=== PATIENT | female | born 2000 | race Caucasian/White ===

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

== ENCOUNTER → 2018-01-30 | Outpatient (CLI) | payer BC ==
[2018-01-30 16:47] LABS: BASO % 0.5 % (0.0-1.0); EOS # 0.2 10^3/uL (0.0-0.50); EOS % 3.2 % (0.0-3.0); HEMATOCRIT 41.4 % (36.0-47.0); HEMOGLOBIN 13.5 g/dl (12.0-16.0); IMMATURE GRANULOCYTE % 0.2 % (0-3.0); LYMPH # 2.2 10^3/uL (1.5-6.5); LYMPH % 34.8 % (24.0-44.0); MEAN CORPUSCULAR HEMOGLOBIN 26.8 pg (27.0-33.0); MEAN CORPUSCULAR HGB CONC 32.6 g/dl (32.0-36.5); MEAN CORPUSCULAR VOLUME 82.1 fl (80.0-96.0); MONO # 0.5 10^3/uL (0.0-0.8); MONO % 8.5 % (0.0-5.0); NEUTROPHILS # 3.4 10^3/uL (1.8-7.7); NEUTROPHILS % 52.8 % (36.0-66.0); PLATELET COUNT, AUTOMATED 260 10^3/uL (150-450); RED BLOOD COUNT 5.04 10^6/uL (4.00-5.40); RED CELL DISTRIBUTION WIDTH 13.3 % (11.5-14.5); WHITE BLOOD COUNT 6.3 10^3/uL (4.0-10.0)
[2018-01-30 18:53] LABS: ESTIMATED AVERAGE GLUCOSE 105 MG/DL (60-110); HEMOGLOBIN A1c 5.3 %
[2018-01-30 18:59] LABS: THYROID PEROXIDASE ANTIBODY > 1300.0 U/ML (<60.0)
[2018-01-30 19:33] LABS: ALBUMIN/GLOBULIN RATIO 1.08 (1.00-1.93); ALKALINE PHOSPHATASE 62 U/L (45-117); ALT/SGPT 17 U/L (12-78); ANION GAP 8 MEQ/L (8-16); AST/SGOT 15 U/L (7-37); BILIRUBIN,TOTAL 0.4 MG/DL (0.2-1.0); BLOOD UREA NITROGEN 10 MG/DL (7-18); C REACTIVE PROTEIN QUANTITATIV 0.65 MG/DL (0.00-0.30); CARBON DIOXIDE LEVEL 24 MEQ/L (21-32); CHLORIDE LEVEL 108 MEQ/L (98-107); CHOLESTEROL LEVEL 231 MG/DL (<200); CHOLESTEROL RISK RATIO 4.529 (<5); FERRITIN 26 NG/ML (8-252); FREE T4 1.21 NG/DL (0.78-1.33); GLUCOSE, FASTING 76 MG/DL (70-100); HDL CHOLESTEROL 51 MG/DL (>40); IRON (FE) 86 UG/DL (50-170); LDL CHOLESTEROL 163.2 MG/DL (<100); NON-HDL-C 180 MG/DL; PERCENT SATURATION 23.4 % (13.2-45.0); POTASSIUM SERUM 4.1 MEQ/L (3.5-5.1); SODIUM LEVEL 140 MEQ/L (136-145); TOTAL IRON BINDING CAPACITY 367 UG/DL (250-450); TOTAL PROTEIN 7.7 GM/DL (6.4-8.2); TRIGLYCERIDES LEVEL 84 MG/DL (<150)
[2018-02-01 14:11] LABS: INSULIN LEVEL 12.8 uIU/mL (2.6-24.9)
== END ==
LOC: M WUC 10:20
DX: D50.9 Iron deficiency anemia, unspecified (principal); E66.3 Overweight; M25.569 Pain in unspecified knee

== ENCOUNTER → 2018-10-23 | Outpatient (CLI) | payer BC ==
[2018-10-23 12:47] LABS: BASO % 0.5 % (0.0-1.0); EOS # 0.2 10^3/uL (0.0-0.50); EOS % 2.6 % (0.0-3.0); HEMATOCRIT 40.7 % (36.0-47.0); HEMOGLOBIN 13.6 g/dl (12.0-15.5); IMMATURE GRANULOCYTE % 0.2 % (0-3.0); LYMPH # 2.2 10^3/uL (1.5-6.5); LYMPH % 26.6 % (24.0-44.0); MEAN CORPUSCULAR HEMOGLOBIN 26.9 pg (27.0-33.0); MEAN CORPUSCULAR HGB CONC 33.4 g/dl (32.0-36.5); MEAN CORPUSCULAR VOLUME 80.4 fl (80.0-96.0); MONO # 0.9 10^3/uL (0.0-0.8); MONO % 10.8 % (0.0-5.0); NEUTROPHILS # 4.8 10^3/uL (1.8-7.7); NEUTROPHILS % 59.3 % (36.0-66.0); PLATELET COUNT, AUTOMATED 260 10^3/uL (150-450); RED BLOOD COUNT 5.06 10^6/uL (4.00-5.40); RED CELL DISTRIBUTION WIDTH 13.3 % (11.5-14.5); RETIC HEMOGLOBIN EQUIVALENT 32.4 pg (24-36); RETICULOCYTE # 59.7 10^9/L (17-77); RETICULOCYTE % 1.2 % (0.5-1.5); WHITE BLOOD COUNT 8.1 10^3/uL (4.0-10.0)
[2018-10-23 13:01] LABS: C REACTIVE PROTEIN QUANTITATIV 0.32 MG/DL (0.00-0.30); CHOLESTEROL LEVEL 169 MG/DL (<200); CHOLESTEROL RISK RATIO 4.023 (<5); CPK CREATINE PHOSPHOKINASE 170 U/L (26-192); FREE T4 0.89 NG/DL (0.78-1.33); HDL CHOLESTEROL 42 MG/DL (>40); LDL CHOLESTEROL 107 MG/DL (<100); NON-HDL-C 127 MG/DL; TRIGLYCERIDES LEVEL 101 MG/DL (<150); VITAMIN B12 LEVEL 663 PG/ML (247-911)
== END ==
LOC: M WUC 09:40
DX: D50.9 Iron deficiency anemia, unspecified (principal); E78.2 Mixed hyperlipidemia; E06.3 Autoimmune thyroiditis
CPT/HCPCS: 82550

== ENCOUNTER → 2019-04-08 | Outpatient (CLI) | payer BC ==
[~2019-04-08] MED LIST: CEPH500C; PERC5TAB12 PO
[2019-04-08 16:53] LABS: BASO % 0.6 % (0.0-1.0); EOS # 0.2 10^3/uL (0.0-0.50); EOS % 2.6 % (0.0-3.0); HEMATOCRIT 42.3 % (36.0-47.0); HEMOGLOBIN 13.6 g/dl (12.0-15.5); LYMPH # 1.9 10^3/uL (1.5-6.5); LYMPH % 29.8 % (24.0-44.0); MEAN CORPUSCULAR HEMOGLOBIN 26.8 pg (27.0-33.0); MEAN CORPUSCULAR HGB CONC 32.2 g/dl (32.0-36.5); MEAN CORPUSCULAR VOLUME 83.4 fl (80.0-96.0); MONO # 0.5 10^3/uL (0.0-0.8); NEUTROPHILS # 3.8 10^3/uL (1.8-7.7); NEUTROPHILS % 58.8 % (36.0-66.0); PLATELET COUNT, AUTOMATED 319 10^3/uL (150-450); RED BLOOD COUNT 5.07 10^6/uL (4.00-5.40); WHITE BLOOD COUNT 6.5 10^3/uL (4.0-10.0)
[2019-04-08 17:07] LABS: ALBUMIN 3.9 GM/DL (3.2-5.2); ALT/SGPT 14 U/L (12-78); BILIRUBIN,TOTAL 0.7 MG/DL (0.2-1.0); BLOOD UREA NITROGEN 11 MG/DL (7-18); CALCIUM LEVEL 9.2 MG/DL (8.5-10.1); CARBON DIOXIDE LEVEL 27 MEQ/L (21-32); CHLORIDE LEVEL 107 MEQ/L (98-107); CREATININE FOR GFR 0.74 MG/DL (0.55-1.30); GLUCOSE, FASTING 86 MG/DL (70-100); POTASSIUM SERUM 4.1 MEQ/L (3.5-5.1); SODIUM LEVEL 140 MEQ/L (136-145); TOTAL PROTEIN 7.9 GM/DL (6.4-8.2)
[2019-04-08 17:18] LABS: APPEARANCE, URINE HAZY (CLEAR); BACTERIA, URINE AUTO NEGATIVE (NEGATIVE); BILIRUBIN, URINE AUTO NEGATIVE (NEGATIVE); BLOOD, URINE BLOOD NEGATIVE (NEGATIVE); COLOR, URINE YELLOW (YELLOW); GLUCOSE, URINE (UA) AUTO NEGATIVE (NEGATIVE); KETONE, URINE AUTO NEGATIVE (NEGATIVE); LEUKOCYTE ESTERASE, URINE AUTO NEGATIVE (NEGATIVE); MUCUS, URINE SMALL (NEGATIVE); NITRITE, URINE AUTO NEGATIVE (NEGATIVE); PROTEIN, URINE AUTO NEGATIVE (NEGATIVE); RBC, URINE AUTO 0 /HPF (0-3); SPECIFIC GRAVITY URINE AUTO 1.024 (1.002-1.035); SQUAMOUS EPITHELIAL CELL UR AU 2 /HPF (0-6); UROBILINOGEN, URINE AUTO 0.2 mg/dL (0.0-2.0); WBC, URINE AUTO 0 /HPF (0-3)
[2019-04-08 17:35] LABS: MALB URINE SIEMENS 10.9 MG/L; MAU/CREAT RATIO 3.9 MCG/MG (0.0-30.0)
[2019-04-08 18:55] LABS: HEMOGLOBIN A1c 5.4 %
== END ==
LOC: M WUC 13:25
PROVIDERS: ATTEND Family Medicine
DX: D50.9 Iron deficiency anemia, unspecified (principal); R73.01 Impaired fasting glucose; E78.2 Mixed hyperlipidemia

== ENCOUNTER → 2019-05-12 | Outpatient (REF) | payer BC ==
[2019-05-12 13:09] LABS: FREE T4 0.89 NG/DL (0.76-1.46); THYROID STIMULATING HORMONE 1.59 uIU/ML (0.358-3.740)
== END ==
LOC: M SFHCPLAZ 10:33
PROVIDERS: ATTEND Family Medicine
DX: R40.0 Somnolence (principal)

== ENCOUNTER → 2023-09-05 | Outpatient (CLI) | payer MEDICARE, OTHER ==
[2023-09-05 14:22] LABS: HEMATOCRIT 41.5 % (36.0-47.0); HEMOGLOBIN 13.7 g/dl (12.0-15.5); MEAN CORPUSCULAR HEMOGLOBIN 28.1 pg (27.0-33.0); MEAN CORPUSCULAR VOLUME 85.2 fl (80.0-96.0); PLATELET COUNT, AUTOMATED 248 10^3/uL (150-450); RED BLOOD COUNT 4.87 10^6/uL (4.00-5.40); WHITE BLOOD COUNT 10.2 10^3/uL (4.0-10.0)
[2023-09-05 15:08] LABS: HIV 1&2 SCREEN NEGATIVE (NEGATIVE)
[2023-09-05 15:16] LABS: HEPATITIS C VIRUS ABY INDEX 0.04 INDEX (<0.8)
== END ==
LOC: M PLALAB 10:40
PROVIDERS: ATTEND Advanced Practice Midwife
DX: Z34.81 Encounter for supervision of other normal pregnancy, first trimester (principal)

== ENCOUNTER → 2023-10-03 | Outpatient (REF) | payer OTHER, MEDICARE ==
[2023-10-04 12:29] LABS: CHLAMYDIA DNA AMPLIFICATION NEGATIVE (NEGATIVE); GC DNA AMPLIFICATION NEGATIVE (NEGATIVE)
== END ==
LOC: M SFHCWAGY 10:34
PROVIDERS: ATTEND Advanced Practice Midwife
DX: Z34.81 Encounter for supervision of other normal pregnancy, first trimester (principal)

== ENCOUNTER → 2023-10-24 | Outpatient (CLI) | payer BC, OTHER | LOC: M WHC 11:41 | PROVIDERS: ATTEND Obstetrics & Gynecology | DX: O09.292 Supervision of pregnancy with other poor reproductive or obstetric history, second trimester (principal) ==

== ENCOUNTER → 2023-12-10 | Outpatient (CLI) | payer BC, OTHER | LOC: M WHC 08:47 | PROVIDERS: ATTEND Advanced Practice Midwife | DX: Z34.82 Encounter for supervision of other normal pregnancy, second trimester (principal); Z3A.28 28 weeks gestation of pregnancy ==

== ENCOUNTER → 2023-12-11 | Outpatient (CLI) | payer BC, OTHER ==
[2023-12-11 17:38] LABS: HEMATOCRIT 35.9 % (36.0-47.0); HEMOGLOBIN 11.9 g/dl (12.0-15.5); MEAN CORPUSCULAR HEMOGLOBIN 27.9 pg (27.0-33.0); MEAN CORPUSCULAR HGB CONC 33.1 g/dl (32.0-36.5); MEAN CORPUSCULAR VOLUME 84.1 fl (80.0-96.0); PLATELET COUNT, AUTOMATED 278 10^3/uL (150-450); RED BLOOD COUNT 4.27 10^6/uL (4.00-5.40); WHITE BLOOD COUNT 13.3 10^3/uL (4.0-10.0)
== END ==
LOC: M PLALAB 15:06
PROVIDERS: ATTEND Advanced Practice Midwife
DX: Z34.82 Encounter for supervision of other normal pregnancy, second trimester (principal)

== ENCOUNTER → 2024-01-09 | Outpatient (CLI) | payer BC, OTHER | LOC: M RAD 07:37 | PROVIDERS: ATTEND Obstetrics & Gynecology | DX: Z36.2 Encounter for other antenatal screening follow-up (principal) ==

== ENCOUNTER → 2024-01-09 | Outpatient (CLI) | payer BC, OTHER | LOC: M LAB 07:35 | PROVIDERS: ATTEND Advanced Practice Midwife | DX: O99.810 Abnormal glucose complicating pregnancy (principal) ==

== ENCOUNTER → 2024-02-15 | Outpatient (REF) | payer BC | LOC: M SFHCWAGY 16:52 | PROVIDERS: ATTEND Advanced Practice Midwife | DX: Z34.83 Encounter for supervision of other normal pregnancy, third trimester (principal) ==

== ENCOUNTER → 2024-02-18 | Outpatient (CLI) | payer BC | LOC: M RAD 13:32 | PROVIDERS: ATTEND Obstetrics & Gynecology | DX: Z36.2 Encounter for other antenatal screening follow-up (principal) ==

== ENCOUNTER 2024-02-28 12:02 | Outpatient (CLI) | payer BC ==
[~2024-02-28] VITALS: Ht 170.2 cm; Wt 124.4 kg
[2024-02-28] MEDS ORDERED: TUMS750C5 PO (12:26)
[2024-02-28] MEDS ORDERED: ACET-897 PO (12:26)
[2024-02-28] MEDS ORDERED: PRENTAB9 PO (12:26)
[2024-02-28] MEDS ORDERED: VALT500T PO (12:26)
[2024-02-28 12:28] VITALS: BP 120/70
[2024-02-28] MEDS ORDERED: HOME MED LIST COMPLETE! XX SCH (12:30)
[2024-02-28 13:10] VITALS: BP 113/58
[2024-02-28 16:12] LABS: HEMOGLOBIN 11.9 g/dl (12.0-15.5); MEAN CORPUSCULAR HEMOGLOBIN 26.8 pg (27.0-33.0); MEAN CORPUSCULAR HGB CONC 33.1 g/dl (32.0-36.5); MEAN CORPUSCULAR VOLUME 81.1 fl (80.0-96.0); PLATELET COUNT, AUTOMATED 242 10^3/uL (150-450); RED BLOOD COUNT 4.44 10^6/uL (4.00-5.40); WHITE BLOOD COUNT 14.2 10^3/uL (4.0-10.0)
[2024-02-28 16:59] VITALS: BP 119/72
== END 2024-02-28 17:53 | disposition home or self-care (01) ==
LOC: M LDO 12:02
PROVIDERS: ATTEND Obstetrics & Gynecology
DX: O26.893 Other specified pregnancy related conditions, third trimester (principal); R10.817 Generalized abdominal tenderness; R10.2 Pelvic and perineal pain; O99.213 Obesity complicating pregnancy, third trimester; E66.9 Obesity, unspecified; Z86.19 Personal history of other infectious and parasitic diseases; Z3A.38 38 weeks gestation of pregnancy; Y92.9 Unspecified place or not applicable; Y93.9 Activity, unspecified; Y99.9 Unspecified external cause status
CPT/HCPCS: 36415; 59025; 76815; 85027; 85460; G0463

== ENCOUNTER 2024-03-19 07:36 | Inpatient (IN) | payer BC ==
[2024-03-19] VITALS (23 sets, daily range): BP systolic 103–140; BP diastolic 56–90; O2SAT 97
[~2024-03-19] VITALS: Ht 170.2 cm; Wt 123.8 kg
[~2024-03-19 07:36] MED LIST changes: +ACET-897 PO; +PRENTAB9 PO; +TUMS750C5 PO; +VALT500T PO
[2024-03-19] MEDS ORDERED: HOME MED LIST COMPLETE! XX SCH (08:00)
[2024-03-19] MEDS ORDERED: CARBOPROST TROMETHAMINE 250 MCG/ML AMP IM PRN (08:35)
[2024-03-19] MEDS ORDERED: OXYTOCIN DRIP 30 UNITS in IV 1 EA IV PRN (08:35)
[2024-03-19] MEDS ORDERED: METHYLERGONOVINE MALEATE 0.2MG/ML 1ML VIAL IM PRN (08:35)
[2024-03-19] MEDS ORDERED: OXYTOCIN INJ 10UNITS/ML 1ML VIAL IM PRN (08:35)
[2024-03-19] MEDS ORDERED: TRANEXAMIC ACID INJection 1,000 MG in NS 100 ML IV PRN (08:35)
[2024-03-19] MEDS ORDERED: LIDOCAINE 1% MDV 20ML VIAL INFIL PRN (08:35)
[2024-03-19] MEDS: miSOPROStol 50MCG 1/2 TABLET PO SCH (09:08)
[2024-03-19 09:18] LABS: HEMOGLOBIN 11.9 g/dl (12.0-15.5); MEAN CORPUSCULAR HEMOGLOBIN 26.8 pg (27.0-33.0); MEAN CORPUSCULAR HGB CONC 33.1 g/dl (32.0-36.5); MEAN CORPUSCULAR VOLUME 81.1 fl (80.0-96.0); PLATELET COUNT, AUTOMATED 194 10^3/uL (150-450); RED BLOOD COUNT 4.44 10^6/uL (4.00-5.40); WHITE BLOOD COUNT 10.1 10^3/uL (4.0-10.0)
[2024-03-19] MEDS ORDERED: ONDANSETRON 4MG 2ML VIAL IV PRN (18:10)
[2024-03-19] MEDS ORDERED: LR 500 ML IV PRN (18:10)
[2024-03-19] MEDS ORDERED: EPIDURAL/PCA KEYS XX PRN (18:10)
[2024-03-19] MEDS ORDERED: NALOXONE INJ 0.4MG/1ML VIAL IV PRN (18:10)
[2024-03-19] MEDS ORDERED: diphenhydrAMINE 50MG/ML VIAL IV PRN (18:10)
[2024-03-19] MEDS: LR 1,000 ML IV ONE (18:28)
[2024-03-19] MEDS: FENTANYL/ROPIVACAINE/NACL BAG 100 ML EPIDURAL SCH (19:09)
[2024-03-19] MEDS: OXYTOCIN DRIP 30 UNITS in IV 1 EA IV SCH (20:25)
[2024-03-19] MEDS: OMEPRAZOLE 20MG CAP PO ONE (22:36)
[2024-03-19] MEDS: ePHEDrine SULFATE 25 MG/5 ML(5MG/ML) SYRINGE IVP PRN (23:53)
[2024-03-20] VITALS (39 sets, daily range): BP systolic 99–147; BP diastolic 55–89; TEMP 98.7; O2SAT 97–100
[2024-03-20] MEDS: LR 1,000 ML IV SCH ×2 (01:43→09:53)
[2024-03-20] MEDS: ceFAZolin SOD 2 GM in IV 1 EA IV ONE (08:05)
[2024-03-20] MEDS: AZITHROMYCIN INJ 500 MG, VIAL MATE ADAPTER 1 EACH in NS 250 ML IV ONE (08:12)
[2024-03-20] MEDS: BICITRA 30ML SOLN UDC PO ONE (08:12)
[2024-03-20] MEDS: ceFAZolin SOD 1 GM in D5W MINI-BAG PLUS 50 ML IV ONE (08:12)
[2024-03-20] MEDS ORDERED: MORPHINE PRES-FREE INJ 10 MG/10 ML VIAL As Ordered ONE (08:23)
[2024-03-20] MEDS ORDERED: OXYTOCIN 30UNITS IN 0.9% NaCl 500ML IV BAG As Ordered ONE (08:36)
[2024-03-20] MEDS ORDERED: ONDANSETRON 4MG 2ML VIAL As Ordered ONE (08:37)
[2024-03-20] MEDS ORDERED: ACETAMINOPHEN 1000MG 100ML IV BAG As Ordered ONE (08:50)
[2024-03-20] MEDS ORDERED: METOCLOPRAMIDE INJ 10MG/2ML VIAL As Ordered ONE (08:51)
[2024-03-20] MEDS ORDERED: KETOROLAC 60MG 2ML VIAL As Ordered ONE (08:52)
[2024-03-20] MEDS: PRENATAL VITAMINS CHEWABLE TABLET PO SCH (09:00)
[2024-03-20] MEDS ORDERED: ePHEDrine SULFATE 25 MG/5 ML(5MG/ML) SYRINGE As Ordered ONE (09:14)
[2024-03-20] MEDS ORDERED: PHENYLephrine 500MCG 5ML (100MCG/ML) SYRINGE As Ordered ONE (09:14)
[2024-03-20] MEDS ORDERED: SIMETHICONE 80MG CHEW TAB PO PRN (09:35)
[2024-03-20] MEDS ORDERED: oxyCODONE 5MG TAB PO PRN ×2 (09:35→09:40)
[2024-03-20] MEDS ORDERED: RHO(D) IMMUNE GLOBULIN/MALTOSE 500MCG(2500IU)/2.2ML VIAL (WINRHO) IM SCH (09:35)
[2024-03-20] MEDS ORDERED: ONDANSETRON 4MG 2ML VIAL IV PRN (09:40)
[2024-03-20] MEDS ORDERED: fentaNYL 100 MCG/2 ML INJECTION IV PRN (09:40)
[2024-03-20] MEDS ORDERED: NALOXONE INJ 0.4MG/1ML VIAL IV PRN ×2 (09:40)
[2024-03-20] MEDS ORDERED: METOCLOPRAMIDE INJ 10MG/2ML VIAL IV PRN (09:40)
[2024-03-20] MEDS ORDERED: diphenhydrAMINE 50MG/ML VIAL IV PRN (09:40)
[2024-03-20] MEDS ORDERED: **NOTE PATIENT COMMENT** MISC XX SCH (09:40)
[2024-03-20] MEDS: SLF 3 ML SYR IV SCH (09:40)
[2024-03-20] MEDS: OXYTOCIN DRIP 30 UNITS in IV 1 EA IV SCH (09:47)
[2024-03-20] MEDS: ACETAMINOPHEN 500 MG TAB PO SCH (15:00)
[2024-03-20] MEDS: KETOROLAC 30 MG/ML 1ML VIAL IV SCH (15:09)
[2024-03-21 02:00] VITALS: BP 102/60; O2SAT 97
[2024-03-21 06:00] VITALS: BP 119/74; O2SAT 97
[2024-03-21 06:23] LABS: MEAN CORPUSCULAR HEMOGLOBIN 27.3 pg (27.0-33.0); MEAN CORPUSCULAR HGB CONC 33.9 g/dl (32.0-36.5); MEAN CORPUSCULAR VOLUME 80.5 fl (80.0-96.0); PLATELET COUNT, AUTOMATED 192 10^3/uL (150-450); RED BLOOD COUNT 3.48 10^6/uL (4.00-5.40); WHITE BLOOD COUNT 13.6 10^3/uL (4.0-10.0)
[2024-03-21 06:35] LABS: HEMOGLOBIN 9.5 g/dl (12.0-15.5)
[2024-03-21 10:00] VITALS: BP 132/74; O2SAT 98
[2024-03-21] MEDS: IBUPROFEN 600MG TAB PO SCH (12:39)
[2024-03-21 14:00] VITALS: BP 130/71; O2SAT 98
[2024-03-21 18:00] VITALS: BP 135/85; O2SAT 99
[2024-03-21] MEDS: oxyCODONE 5MG TAB PO PRN (19:35)
[2024-03-21 22:00] VITALS: BP 132/86
[2024-03-22 03:00] VITALS: BP 132/74; O2SAT 99
[2024-03-22 06:00] VITALS: BP 117/60; O2SAT 98
[2024-03-22 08:38] VITALS: O2SAT 98
[2024-03-22] MEDS: MEASLES,MUMPS,RUBELLA VACCINE INJ (MMR-II) SC.IMMUN ONE (09:00)
[2024-03-22] MEDS: DOCUSATE SODIUM 100MG CAPSULE PO PRN (09:45)
[2024-03-22 10:00] VITALS: BP 134/87; O2SAT 97
[2024-03-22 14:00] VITALS: BP 130/67; O2SAT 98
[2024-03-22] MEDS ORDERED: OXYC-517 PO (14:39)
== END 2024-03-22 15:45 | disposition home or self-care (01) | DRG 540 ==
LOC: M LDI 07:36 → M OBS 03-20 10:50
PROVIDERS: ADMIT Advanced Practice Midwife; ATTEND Obstetrics & Gynecology
PROC: 3E0P7GC Introduction of Other Therapeutic Substance into Female Reproductive, Via Natural or Artificial Opening (ICD-10-PCS; 2024-03-19)
PROC: 10D00Z1 Extraction of Products of Conception, Low, Open Approach (ICD-10-PCS; principal; 2024-03-20 08:08)
DX: O48.0 Post-term pregnancy (principal); O76 Abnormality in fetal heart rate and rhythm complicating labor and delivery; Z3A.41 41 weeks gestation of pregnancy; Z79.899 Other long term (current) drug therapy; Z37.0 Single live birth; O62.0 Primary inadequate contractions

== ENCOUNTER → 2025-06-12 | Outpatient (CLI) | payer BC ==
[~2025-06-12] MED LIST changes: +OXYC-517 PO
== END ==
LOC: M WHC 07:40
PROVIDERS: ATTEND Advanced Practice Midwife
DX: Z34.82 Encounter for supervision of other normal pregnancy, second trimester (principal); Z3A.15 15 weeks gestation of pregnancy

== ENCOUNTER → 2025-07-09 | Outpatient (CLI) | payer BC ==
[2025-07-09 11:17] LABS: PLATELET COUNT, AUTOMATED 276 10^3/uL (150-450)
[2025-07-09 12:14] LABS: HIV 1&2 SCREEN NEGATIVE (NEGATIVE)
[2025-07-09 12:22] LABS: HEPATITIS C VIRUS ABY INDEX 0.04 INDEX (<0.8)
[2025-07-09 12:26] LABS: Trichomonas vaginalis (AMP) NOT DETECTED (NEGATIVE)
[2025-07-09 12:50] LABS: GC DNA AMPLIFICATION NEGATIVE (NEGATIVE)
== END ==
LOC: M PLALAB 08:13
PROVIDERS: ATTEND Advanced Practice Midwife
DX: Z34.82 Encounter for supervision of other normal pregnancy, second trimester (principal)

== ENCOUNTER → 2025-07-24 | Outpatient (CLI) | payer BC | LOC: M WHC 14:27 | PROVIDERS: ATTEND Advanced Practice Midwife | DX: Z34.82 Encounter for supervision of other normal pregnancy, second trimester (principal) ==

== ENCOUNTER → 2025-09-01 | Outpatient (CLI) | payer BC ==
[2025-09-01 13:09] LABS: PLATELET COUNT, AUTOMATED 274 10^3/uL (150-450)
[2025-09-01 14:29] LABS: GLUCOSE CHALLENGE TEST 1 HOUR 106 MG/DL (LESS THAN 140)
[2025-09-01 15:02] LABS: HIV 1&2 SCREEN NEGATIVE (NEGATIVE)
[2025-09-01 15:03] LABS: GC DNA AMPLIFICATION NEGATIVE (NEGATIVE); Trichomonas vaginalis (AMP) NOT DETECTED (NEGATIVE)
[2025-09-01 15:10] LABS: HEPATITIS C VIRUS ABY INDEX 0.08 INDEX (<0.8)
== END ==
LOC: M PLALAB 09:07
PROVIDERS: ATTEND Student in an Organized Health Care Education/Training Program
DX: O09.292 Supervision of pregnancy with other poor reproductive or obstetric history, second trimester (principal)

== ENCOUNTER → 2025-11-11 | Outpatient (REF) | payer BC, OTHER | LOC: M SFHCWAGY 16:52 | PROVIDERS: ATTEND Obstetrics & Gynecology | DX: Z34.93 Encounter for supervision of normal pregnancy, unspecified, third trimester (principal); Z3A.37 37 weeks gestation of pregnancy ==